=== PATIENT | female | born 1940 | race Caucasian/White ===

== ENCOUNTER 2019-03-12 06:41 | Inpatient (IN) | payer MEDICARE ==
[~2019-03-12] VITALS: Ht 171.4 cm; Wt 66.2 kg
[2019-03-12 08:00] VITALS: BP 145/50
[2019-03-12] MEDS ORDERED: CYAN500T4 PO (08:29)
[2019-03-12] MEDS ORDERED: OMEG1CAP55 PO (08:29)
[2019-03-12] MEDS ORDERED: ASCO500T8 PO (08:29)
[2019-03-12] MEDS ORDERED: VITA400C68 PO (08:29)
[2019-03-12] MEDS ORDERED: MIRT30TA PO (08:29)
[2019-03-12] MEDS ORDERED: LORA0.5T PO (08:29)
[2019-03-12] MEDS ORDERED: UBID30CA21 PO (08:29)
[2019-03-12] MEDS ORDERED: GLUC100017 PO (08:29)
[2019-03-12] MEDS ORDERED: AMLO10TA4 PO (08:29)
[2019-03-12] MEDS ORDERED: TURM500C9 PO (08:29)
[2019-03-12] MEDS ORDERED: LISI-603 PO (08:29)
[2019-03-12] MEDS ORDERED: TEMAZEPAM 7.5 MG CAPSULE PO PRN (10:00)
[2019-03-12] MEDS ORDERED: MAGNESIUM HYDROXIDE 30 ML UDC PO PRN (10:00)
[2019-03-12] MEDS ORDERED: ACETAMINOPHEN 325 MG TABLET PO PRN (10:00)
[2019-03-12] MEDS ORDERED: MAG HYDROX/AL HYDROX/SIMETH 30 ML UDC PO PRN (10:00)
[2019-03-12 16:00] VITALS: BP 159/71
--- NOTE | 2019-03-12 19:30 | NUR ---
GPS RN NOTE, RECEIVED PATIENT AWAKE AND IN BED, NO S/S OR COMPLAINTS OF PAIN AT THIS TIME. PATIENT IS DISPLAYING NO S/S OF APPARENT DISTRESS AT THIS TIME. PATIENT BREATHING IS UNLABORED WITH EQUAL RISE AND FALL OF THE CHEST. PATIENT IS ALERT AND ORIENTED X 3 ON ROOM AIR WITH A SPO2 OF 94 %. PATIENT IS MED COMPLAINT, DISORGANIZED, ANXIOUS,PACING, COOPERATIVE, AND NEEDS REORIENTATION. PATIENT DENIES SUICIDE AND HOMICIDAL IDEATIONS AT THIS TIME. PATIENT ASSISTED WITH TURNING AND REPOSITIONING Q2HR AND PRN FOR COMFORT AND CIRCULATION. PATIENT HAS NO NEEDS AT THIS TIME. PATIENT EDUCATED ON THE USE OF THE CALL MAJOR. PATIENT BED SIDE RAILS ARE UP X 2 FOR SAFETY, BED IS LOCKED, AND LOW WILL CONTINUE TO MONITOR AND MAINTAIN SAFETY.
[2019-03-12] MEDS: clonazePAM 0.5 MG TABLET PO PRN (19:44)
--- NOTE | 2019-03-12 19:44 | NUR ---
GPS RN NOTE, PATIENT HAS A COMPLAINT OF FELLING ANXIOUS AND IS REQUESTING KLONOPIN AT THIS TIME. PATIENT VITAL SIGNS ARE STABLE. GAVE KLONOPIN 0.25 MG PO Q4HR PRN ORDERED. WILL REASSESS FOR ANXIETY AND I WILL CONTINUE TO MONITOR THIS PATIENT.
[2019-03-12 20:49] VITALS: BP 154/65
[2019-03-12] MEDS: MIRTAZAPINE 15 MG TABLET PO SCH (21:17)
[2019-03-13 06:43] LABS: ALANINE AMINOTRANSFERASE 21 U/L (12-78); ALBUMIN 3.1 g/dL (3.4-5.0); ALKALINE PHOSPHATASE 63 U/L (46-116); ASPARTATE AMINOTRANSFERASE 22 U/L (15-37); BILIRUBIN,TOTAL 0.4 mg/dL (0.2-1.0); CALCIUM, SERUM 9.1 mg/dL (8.5-10.1); CARBON DIOXIDE 27 mmol/L (21-32); CHLORIDE 104 mmol/L (98-107); CREATININE 1.2 mg/dL (0.6-1.3); GLUCOSE 85 mg/dL (74-106); SODIUM SERUM 139 mmol/L (136-145); TOTAL PROTEIN, SERUM 6.7 g/dL (6.4-8.2); UREA NITROGEN, BLOOD 25 mg/dL (7-18)
[2019-03-13 06:49] LABS: CHOLESTEROL 176 mg/dL (<200); HDL CHOLESTEROL 49 mg/dL (40-60); LDL 109 mg/dL (0-99); TRIGLYCERIDES 118 mg/dL (30-150)
[2019-03-13 08:00] VITALS: BP 134/58
[2019-03-13] MEDS: AMLODIPINE BESYLATE 10 MG TABLET PO SCH (08:34)
[2019-03-13] MEDS: CYANOCOBALAMIN 500 MCG TABLET PO SCH (08:34)
[2019-03-13] MEDS: ASCORBIC ACID 500 MG TABLET PO SCH (08:35)
[2019-03-13] MEDS: LISINOPRIL (20MG) 20 MG TABLET PO SCH (08:36)
[2019-03-13] MEDS: VITAMIN E 400 UNIT CAPSULE PO SCH (08:37)
[2019-03-13] MEDS: clonazePAM 0.5 MG TABLET PO PRN ×2 (08:41→16:00)
--- NOTE | 2019-03-13 08:43 | NUR ---
RN NOTE : PATIENT WAS COMPLAINING OF ANXIETY, PRN KLONOPIN GIVEN. WILL CONTINUE TO MONITOR.
--- NOTE | 2019-03-13 15:52 | NUR ---
[employer] Straight[employer] Group session-- Goal: Patient will attend group being held today from 11am -11:45 in the activities room and participate and/or actively listen to peers and be respectful. Intervention: SW facilitated group session with patients regarding the goal or positive outcome/s pt. would like to see happen as a result of their stay in [facility]. SW validated the patient�s goal and insight and encouraged patient to relay her interest in IOP to her business continuity planner. Response: Patient was agreeable to participating in group. Patient was alert and oriented. Per patient, she hopes to be linked to IOP as a result of her stay here. Patient expressed that group settings have a more positive outcome for her as she is a social person and feels validated when she can connect with others who are enduring the same difficulties as herself. Per patient, she will inform her business continuity planner of interest in IOP post-discharge. Patient remained calm and cooperative throughout group session. Plan: Patient will be invited to attend next long term care social worker group held.
[2019-03-13 16:00] VITALS: BP 139/69
--- NOTE | 2019-03-13 16:01 | NUR ---
RN NOTE: PATIENT STATED FEELINGS OF ANXIOUSNESS, PRN KLONOPIN GIVEN. WILL CONTINUE TO MONITOR.
[2019-03-13 19:55] VITALS: BP 97/46
[2019-03-13] MEDS: MIRTAZAPINE 15 MG TABLET PO SCH (21:14)
[2019-03-14 08:00] VITALS: BP 100/65
[2019-03-14] MEDS: VITAMIN E 400 UNIT CAPSULE PO SCH (08:07)
[2019-03-14] MEDS: ASCORBIC ACID 500 MG TABLET PO SCH (08:07)
[2019-03-14] MEDS: CYANOCOBALAMIN 500 MCG TABLET PO SCH (08:08)
[2019-03-14] MEDS: LISINOPRIL (20MG) 20 MG TABLET PO SCH (08:09)
[2019-03-14] MEDS: AMLODIPINE BESYLATE 10 MG TABLET PO SCH (08:09)
--- NOTE | 2019-03-14 08:09 | NUR ---
RN NOTE: 0900 BP MEDS HELD D/T BP 100/65
[2019-03-14] MEDS: clonazePAM 0.5 MG TABLET PO PRN (13:34)
--- NOTE | 2019-03-14 13:34 | NUR ---
RN NOTE: PATIENT COMPLAINING OF ANXIETY. PRN KLONOPIN GIVEN.
--- NOTE | 2019-03-14 14:05 | NUR ---
SANDY called the pts son Alvarez ([phone]) who stated that he does not believe that the pt should be kept at the inpatient level for too much longer and stated that he believes that she is stable. Pts son stated that the pt should return to her home and that she could benefit from a program.
--- NOTE | 2019-03-14 14:12 | NUR ---
Initial Discharge Plan: Pt currently resides at [facility] located at [address] [place] [address], [address] [address]; ([phone]). Per pt, she would like to return to her apartment. SANDY will work with the MD and the pt regarding appropriate discharge planning. SW will form a safe and proper discharge.
--- NOTE | 2019-03-14 14:25 | NUR ---
SANDY called the pts son Alvarez ([phone]) and informed him that the pt is being discharged today. He stated that he will come pick her up around 4-4:30PM and the SW will provide psychiatric referrals and IOP referrals.
--- NOTE | 2019-03-14 14:43 | NUR ---
RN-CO: DR Bravo SEEN AND EXAMINED THE PATIENT WITH ORDERS TO DISCONTINUE HOLD AND DISCHARGE THE PATIENT. NOTED AND CARRIED OUT.
--- NOTE | 2019-03-14 15:09 | NUR ---
Discharge Note: Pt was discharged back to her apartment located at [address] [place] [address], [place] [address] [address]; ([phone]). Pt�s son, Alvarez ([phone]), picked the pt up at 4pm. Upon discharge, the pt appeared to be in a euthymic mood and presented with a calm affect. Pt denied both suicidal and homicidal ideation as well as auditory and visual hallucinations. Pt was referred to [facility] for psychiatric services located at [address], [place] [address]; ; and a fax was sent to: [phone]. Pt will also continue to be under the care of her pinking machine operator, Dr. Alex Rodriguez, [place] [address] [facility] [facility] [address], [place] [address]; . Psychiatrist Referrals in [place] 1.Radha Sidhu [address] [facility] [address] [place], [place] [id number] 2.Wilber Mc [facility] [address] [facility] [place], [place] [address] 3.[facility] [address] [facility] [address] [place], [place] [address] 4.Yakov Rabago [facility] [address] [place], [place] [address] 5.Yessy Jackson [facility] [address] [address] Mental Health Resources in [place] 6.[facility] [address], [place], [place] [id number] 7.[facility] [place] [address] [facility], [place] [address]
--- NOTE | 2019-03-14 16:15 | NUR ---
RN-CO: PT WAS PICKED UP BY SON ADRIÁN BETH VIA PRIVATE CAR. MEDICATIONS, VALUABLES, AND OTHER BELONGINGS WERE GIVEN BACK TO THE PATIENT. RN EXPLAINED THE DISCHARGE PAPERS INCL. THE PRESCRIPTION AND THEY VERBALIZED UNDERSTANDING.
[2019-03-14 16:21] VITALS: BP 117/70
--- NOTE | 2019-03-14 16:52 | NUR ---
[employer] NOTE: PATIENT IS A 78 YEAR OLD FEMALE DISCHARGED HOME TO [address] [place] [id number] [facility] [phone] . PATIENT IS IN STABLE CONIDITION. COMPLIANT WITH MEDICATION MANAGEMENT. COOPERATIVE WITH PLAN OF CARE. VSS. NO ACUTE DISTRESS NOTED. NO COMPLAINTS. DENIES SI/HI VAH AT THE TIME OF DISCHARGE. BEHAVIOR IMPROVED. PSYCHIATRIC TREATMENT PLANS MET. MEDICAL TREATMENT PLANS DEFERRED FOR CONTINUAL MONITORING. EDUCATED PATIENT ABOUT AFTERCARE WITH COPY PROVIDED. RETURNED PERSONAL BELONGINGS TO PATIENT. DISCHARGE PAPERWORK EXPLAINED AND SIGNED. PATIENT REFUSED SKIN CHECK. MEDICATIONS RECONCILED WITH DR DAVIS AND DR ROBLES WITH PSYCHIATRIC DISCHARGE ORDERS. PATIENT HAS PRESCRIPTIONS AT HOME FOR MEDICAL MEDS, PRESCRIPTION NOT NEEDED. ONLY PSYCHIATRIC MEDICATION PRESCRIPTION PROVIDED PER PATIENT REQUEST. FOR FOLLOW UP WITH PSYCHIATRIST IN [facility] [place] [address] [place] [address] [address] [address] [facility] [address] [facility] [address] WITHIN 1 WEEK. PT WAS PICKED UP BY SON ADRIÁN BETH VIA PRIVATE CAR AND LEFT [facility] GPS UNIT AT 1630.
== END 2019-03-14 16:30 | disposition home or self-care (01) | DRG 885 ==
LOC: GPS 06:41
PROVIDERS: ADMIT Psychiatry & Neurology Psychiatry; ATTEND Internal Medicine Nephrology
DX: F33.2 Major depressive disorder, recurrent severe without psychotic features (principal); N18.9 Chronic kidney disease, unspecified; F43.10 Post-traumatic stress disorder, unspecified; Z88.2 Allergy status to sulfonamides; I12.9 Hypertensive chronic kidney disease with stage 1 through stage 4 chronic kidney disease, or unspecified chronic kidney disease; R19.7 Diarrhea, unspecified; Z62.810 Personal history of physical and sexual abuse in childhood
CPT/HCPCS: 36415; 80053-TC; 80061-TC; 87081-TC